=== PATIENT | male | born 1945 | race Caucasian/White ===

== ENCOUNTER 2019-05-03 12:42 | Emergency (ER) | payer OTHER ==
[2019-05-03 13:06] VITALS: BP 131/64
--- NOTE | 2019-05-03 13:27 | UC ---
Laceration HPI - HPI Summary HPI Summary: Pt used a table saw last night and cut his L index finger. They used peroxide to clean it. Able to move finger and denies tingling/numbness - History Of Current Complaint Chief Complaint: UCLaceration Stated Complaint: FINGER LACERATION Time Seen by Provider: 05/03/19 13:27 Hx Obtained From: Patient Laceration Location: Finger Mechanism Of Injury: Sharp Trauma Onset/Duration: Sudden Onset Pain Intensity: 0 Aggravating Factors: Nothing - Allergies/Home Medications Allergies/Adverse Reactions: Allergies Allergy/AdvReac Type Severity Reaction Status Date / Time No Known Allergies Allergy Verified 05/03/19 13:06 Home Medications: Home Medications Losartan TAB* [Cozaar TAB*] 25 mg PO DAILY 05/03/19 [History Confirmed 05/03/19] Simvastatin TAB(NF) [Zocor(NF)] 10 mg PO 1700 05/03/19 [History Confirmed ] PMH/Surg Hx/FS Hx/Imm Hx Previously Healthy: Yes Cardiovascular History: Cardiac Disease, Hypertension - Surgical History Surgical History: None - Family History Known Family History: Positive: Non-Contributory - Social History Alcohol Use: Occasionally Substance Use Type: None Smoking Status (MU): Never Smoked Tobacco Review of Systems All Other Systems Reviewed And Are Negative: Yes Constitutional: Negative: Fever Skin: Positive: Other - laceration. Negative: Rash Neurovascular: Negative: Decreased Sensation, Decreased Pulses Musculoskeletal: Negative: Arthralgia, Decreased ROM, Edema, Myalgia Neurological: Negative: Weakness, Paresthesia, Numbness Physical Exam Triage Information Reviewed: Yes Appearance: Well-Appearing Vital Signs: Initial Vital Signs Temp 98.9 F 05/03/19 13:01 Pulse 58 05/03/19 13:01 Resp 18 05/03/19 13:01 BP 131/64 05/03/19 13:01 Pulse Ox 99 05/03/19 13:01 Vital Signs Reviewed: Yes Respiratory: Positive: No respiratory distress Cardiovascular: Positive: Pulses Normal - L radial Neurological: Positive: Alert Skin: Positive: Other - L index avulsion lac Diagnostics - Radiology No standard instances Radiology Interpretation Completed By: Radiologist Summary of Radiographic Findings: IMPRESSION: NO RADIOGRAPHIC EVIDENCE OF SUBCUTANEOUS FOREIGN BODY OR ACUTE BONY INJURY Laceration Course/Dx - Course/Dx Course Of Treatment: L index avulsion laceration which was surgiceled from a table saw. xray did not show any fx or chips of bone. had good hemostasis and surrounding tissue had good circulation. i did not see any nail bed involvement on exam. Advised to keep dry and clean. no signs of infection today but gave red flags of when to return. of note tetanus up to date. - Differential Dx - Laceration/Wound Differental Diagnoses: Abrasion, Avulsion, Puncture Wound, Tendon Laceration - Diagnosis Provider Diagnosis: Laceration Discharge ED - Sign-Out/Discharge Documenting (check all that apply): Patient Departure All imaging exams completed and their final reports reviewed: Yes - Discharge Plan Condition: Good Disposition: HOME Patient Education Materials: Skin Avulsion (ED) Referrals: No Primary Care Phys,NOPCP [Primary Care Provider] - Additional Instructions: Please return if it is becoming infected - Billing Disposition and Condition Condition: GOOD Disposition: Home
== END 2019-05-03 14:26 | disposition home or self-care (01) ==
LOC: UCEAST 12:42
DX: S61.211A Laceration without foreign body of left index finger without damage to nail, initial encounter (principal); I10 Essential (primary) hypertension; Z79.899 Other long term (current) drug therapy; W29.8XXA Contact with other powered hand tools and household machinery, initial encounter; Y92.9 Unspecified place or not applicable
CPT/HCPCS: 73140; 99202; G0463